=== PATIENT | male | born 1955 | race Caucasian/White ===

== ENCOUNTER 2017-12-26 15:11 | Outpatient (CLI) | payer BC ==
[2017-12-26 15:54] LABS: eGFR (African) > 60; eGFR (Non-African) > 60
== END 2017-12-26 15:13 ==
LOC: LAB 15:11
PROVIDERS: ATTEND Family Medicine
DX: R51 Headache (principal); E78.5 Hyperlipidemia, unspecified
CPT/HCPCS: 36415; 80053; 80061

== ENCOUNTER 2017-12-31 09:11 | Day surgery (SDC) | payer BC ==
--- NOTE | 2017-12-31 16:18 | GI Report ---
REFERRING PHYSICIAN: Dr. Isreal Short DOUGH MIXING MACHINE OPERATOR: Marcellus Jackson MD PROCEDURE MEDICATION: Propofol as per anesthesia. INDICATIONS: Patient is a 62-year-old man who has had long-standing heartburn and reflux that has not responded to treatment. A question of Garrido's esophagus from an endoscopy 5 years ago in [place]. He denies dysphagia. He says he does have a large hiatal hernia and free reflux. He does not use tobacco. PROCEDURE PERFORMED: Endoscopy followed by a colonoscopy. PROCEDURE: An Olympus video endoscope is passed through the esophagus under direct visualization. Patient has grade 3 esophagitis, possibly a short-segment Garrido's. We did take biopsies of it. He has a wide open GE junction and a 4 cm to 5 cm sliding hiatal hernia. Fundus, body, and antrum of the stomach were normal. Pylorus and duodenal bulb, and first part of the duodenum exam were normal. Patient tolerated the procedure well. FINDINGS: 1. Severe esophagitis, grade 3 or short-segment Garrido's. Biopsies pending. 2. Large hiatal hernia. RECOMMENDATIONS: 1. He needs to sleep with his bed elevated at least 2 to 3 inches. 2. Do not eat late at night. 3. His PPI should be taken 30 minutes before a meal and timed with a meal. 4. He can take an antacid, like Gaviscon, after meals and at bedtime if needed. 5. Sometimes even a 10-pound weight loss significantly improves reflux. cc: Dr. Isreal VALERO
--- NOTE | 2017-12-31 16:22 | GI Report ---
REFERRING PHYSICIAN: Dr. Isreal Short LEAD GENERATION SPECIALIST: Marcellus Jackson MD PROCEDURE MEDICATION: Propofol as per anesthesia. INDICATIONS: The patient's mother had an obstructive mass in her colon removed. He is a high risk screening and referred for follow up. He denies changes in bowel habits or blood in his stool. PROCEDURE PERFORMED: Colonoscopy. PROCEDURE: An Olympus video colonoscope was advanced to the rectum and slowly advanced to the cecum. The appendiceal orifice and terminal ileum were normal. On slow withdrawal, the cecum, ascending colon, and transverse colon with no obvious intraluminal lesions noted. The descending colon and sigmoid colon with no obvious intraluminal lesions noted. Retroflexion of the rectum was normal. Patient tolerated the procedure well. FINDINGS: Normal mucosa to the cecum. RECOMMENDATIONS: 1. Continue high-fiber diet. 2. Consider re-looking at his colon in 5 years because of family history of his mother with an obstructive mass. cc: Dr. Isreal VALERO
== END 2017-12-31 09:12 ==
LOC: OPSURG 09:11
PROVIDERS: ATTEND Internal Medicine Gastroenterology
DX: Z12.11 Encounter for screening for malignant neoplasm of colon (principal); K22.70 Barrett's esophagus without dysplasia; K44.9 Diaphragmatic hernia without obstruction or gangrene; K21.0 Gastro-esophageal reflux disease with esophagitis
CPT/HCPCS: J2001; J2704; J7120; 43239; 45378; S1016

== ENCOUNTER 2018-07-04 12:56 | Outpatient (CLI) | payer OTHER ==
--- NOTE | 2018-07-04 22:56 | Diagnostic Imaging Report ---
ASHLEY SIERRA [facility] [id number] [facility] [address] [place] [address]. [id number] Report Submission Date: Jul 04, 2018 2:44:53 PM MANAGER SURGERY Patient Study Name: ROBERT BACON Date: Jul 04, 2018 1:12:10 PM MANAGER SURGERY Modality Type: CT\SR Gender: M Description: CT BRAIN W/O CONTRAST : 59 Institution: [facility] Physician: ASHLEY SIERRA HEAD CT WITHOUT CONTRAST HISTORY: Headaches for several years COMPARISON: None TECHNIQUE: Axial images were obtained from the skullbase to the vertex without IV contrast. FINDING: The ventricular system is normal in size. The right lateral ventricle is larger than the left but the findings would be with the patient's anatomic variation. There is normal parenchymal attenuation. There is no positive mass effect or intra/extra-axial hemorrhage. Visualized paranasal sinuses and mastoid air cells are clear. The calvarium is intact. IMPRESSION: NO INTRACRANIAL ABNORMALITY. Electronically signed on Jul 04, 2018 2:44:53 PM MANAGER SURGERY by: Cora VALERO
== END 2018-07-04 12:58 ==
LOC: RAD 12:56
PROVIDERS: ATTEND Family Medicine
DX: R51 Headache (principal)
CPT/HCPCS: 70450